=== PATIENT | male | born 1975 | race Two or more races ===

== ENCOUNTER 2023-07-05 20:34 | Emergency (ER) | payer MEDICAID, OTHER ==
[~2023-07-05] VITALS: Ht 185.4 cm; Wt 78.7 kg
[2023-07-05 21:31] VITALS: BP 144/83; PULSE 112; RESP 14; O2SAT 100
[2023-07-06] MEDS ORDERED: IBUP-1456 PO (00:03)
== END 2023-07-06 00:15 | disposition home or self-care (01) ==
LOC: ER 20:34
DX: S63.502A Unspecified sprain of left wrist, initial encounter (principal); M25.531 Pain in right wrist; W18.09XA Striking against other object with subsequent fall, initial encounter; Y93.89 Activity, other specified; Y92.488 Other paved roadways as the place of occurrence of the external cause; Y99.8 Other external cause status
CPT/HCPCS: 29125; 73110